=== PATIENT | female | born 1970 | race Hispanic/Latino ===

== ENCOUNTER 2024-01-24 02:55 | Emergency (ER) | payer BC ==
[~2024-01-24] VITALS: Ht 154.9 cm; Wt 57.6 kg
[2024-01-24 03:20] VITALS: PULSE 62; RESP 18; TEMP 98
[2024-01-24] MEDS ORDERED: AMOXICILLIN500 MG PO (03:40)
[2024-01-24] MEDS ORDERED: DEXAMETHASONE SOD PHOS INJ 4 MG/ML SDV ONE (03:48)
[2024-01-24] MEDS: DEXAMETHASONE PHOS 4MG/ML 5ML MULTIDOSE VIAL INJ ONE (03:49)
[2024-01-24] MEDS: DEXAMETHASONE SOD PHOS INJ 4 MG/ML SDV IM ONE (03:50)
[2024-01-24 04:06] VITALS: BP 168/88; PULSE 18; RESP 16; TEMP 98; O2SAT 97
[2024-01-24] MEDS ORDERED: AMOXICILLI250 MG/5 M PO (04:08)
== END 2024-01-24 04:06 | disposition home or self-care (01) ==
LOC: FSED 02:58
DX: J02.9 Acute pharyngitis, unspecified (principal); R13.10 Dysphagia, unspecified; F17.210 Nicotine dependence, cigarettes, uncomplicated
CPT/HCPCS: 83518; 96372; 99282; J1100